=== PATIENT | male | born 1995 | race Two or more races ===

== ENCOUNTER 2020-12-29 00:32 | Emergency (ER) | payer OTHER ==
[~2020-12-29] VITALS: Ht 167.6 cm; Wt 80.0 kg
[2020-12-29] MEDS ORDERED: LIDOCAINE 2%/EPI 1:100,000 20 ML VIAL. ONE (00:40)
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
[2020-12-29] MEDS ORDERED: LIDOCAINE 1%/EPI 1:100,000 20 ML VIAL. INJ ONE (01:00)
[2020-12-29 01:30] VITALS: BP 138/79
[2020-12-29] MEDS ORDERED: HYDROcodone/APAP 5/325MG 1 TAB TABLET PO ONE (01:30)
[2020-12-29] MEDS ORDERED: DIPH,PERTUSS(ACELL),TET VAC/PF 0.5 ML SYRINGE. VAX IM ONE (01:30)
[2020-12-29] MEDS ORDERED: NAPR-683 PO (01:52)
[2020-12-29] MEDS ORDERED: ONDA4TAB12 PO (01:52)
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
== END 2020-12-29 02:30 | disposition home or self-care (01) ==
LOC: ER 00:32
DX: S01.01XA Laceration without foreign body of scalp, initial encounter (principal); M54.2 Cervicalgia; R51.9 Headache, unspecified; W18.09XA Striking against other object with subsequent fall, initial encounter; Y93.89 Activity, other specified; Y92.89 Other specified places as the place of occurrence of the external cause; Y99.8 Other external cause status
CPT/HCPCS: 12002; 70450; 72125; 90471; 90715; 99285; J3490